=== PATIENT | female | born 1970 | race African-American/Black ===

== ENCOUNTER 2017-03-10 17:53 | Emergency (ER) | payer OTHER ==
[~2017-03-10] VITALS: Ht 162.6 cm; Wt 74.4 kg
--- NOTE | 2017-03-10 18:18 | ED.ADGEN ---
Past History Past Medical History: Other Adult General Chief Complaint Chief Complaint ".. I ve been coughing the past week..." HPI HPI Patient is a 46 year old female who presents with Upper Respiratory Infections and now Bronchitis . Pt has some productive sputum . No travel. No specific ill contacts. Patient is normally healthy. No history immunosuppression Review of Systems Review of Systems Constitutional: History of fever and chills Eyes: Denies change in visual acuity, redness, or eye pain [] HENT: History of nasal congestion and sore throat [] Respiratory: History of cough and wheezing Cardiovascular: No additional information not addressed in HPI [] GI: Denies abdominal pain, nausea, vomiting, bloody stools or diarrhea [] : Denies dysuria or hematuria [] Musculoskeletal: Denies back pain or joint pain [] Integument: Denies rash or skin lesions [] Neurologic: Denies headache, focal weakness or sensory changes [] Endocrine: Denies polyuria or polydipsia [] Family History Family History Noncontributory Current Medications Current Medications Current Medications Medications (Trade) Dose Ordered Sig/Allen Start Time Stop Time Status Last Admin Dose Admin Albuterol Sulfate (Ventolin Hfa) 2 puff 1X ONCE 03/10/17 18:30 03/10/17 18:37 DC 03/10/17 18:32 2 PUFF Azithromycin (Zithromax) 500 mg 1X ONCE 03/10/17 18:45 03/10/17 18:46 DC 03/10/17 19:08 500 MG Prednisone (Prednisone) 50 mg 1X ONCE 03/10/17 18:45 03/10/17 18:46 DC 03/10/17 19:08 50 MG See nursing for home meds Allergies Allergies Allergies Coded Allergies Type Severity Reaction Last Updated Verified No Known Drug Allergies 03/10/17 No Physical Exam Physical Exam Constitutional: Well developed, well nourished, no acute distress, non-toxic appearance. [] HENT: Normocephalic, atraumatic, bilateral external ears normal, oropharynx moist, injected posterior pharynx, no oral exudates, nose swollen turbinates and rhinorrhea Eyes: PERRLA, EOMI, conjunctiva normal, no discharge. [] Neck: Normal range of motion, no tenderness, supple, no stridor. [] Cardiovascular:Heart rate regular rhythm, no murmur [] Lungs & Thorax: Bilateral breath sounds equal with scattered wheezes on auscultation [] Abdomen: Bowel sounds normal, soft, no tenderness, no masses, no pulsatile masses. [] Skin: Warm, dry, no erythema, no rash. [] Back: No tenderness, no CVA tenderness. [] Extremities: No tenderness, no cyanosis, no clubbing, ROM intact, no edema. [] Neurologic: Alert and oriented X 3, normal motor function, normal sensory function, no focal deficits noted. [] Psychologic: Affect normal, judgement normal, mood normal. [] Current Patient Data Vital Signs Vital Signs Date Time Temp Pulse Resp B/P (MAP) Pulse Ox O2 Delivery O2 Flow Rate FiO2 03/10/17 20:00 98.1 90 18 121/56 (77) 98 Room Air EKG EKG [] Radiology/Procedures Radiology/Procedures [] Course & Med Decision Making Course & Med Decision Making Pertinent Labs and Imaging studies reviewed. (See chart for details). Gargle with Listerine 4 times a day. Take 250 Zithromax daily x 5 days. . Prednisone 50 daily x 5 days. . Use MDI 4 times a day. Take Vicoprofen only at night. Follow-up primary care. [] Final Impression Final Impression 1. Upper respiratory infection 2. Bronchitis[] Problems: Dragon Disclaimer Dragon Disclaimer This electronic medical record was generated, in whole or in part, using a voice recognition dictation system. BROOKE ERNST MD Mar 10, 2017 18:18
[2017-03-10] MEDS ORDERED: ALBUTEROL SULFATE 8GM INHALER. INH ONE (18:30)
[2017-03-10] MEDS ORDERED: PRED50TA PO (18:38)
[2017-03-10] MEDS ORDERED: HYDR-79 PO (18:38)
[2017-03-10] MEDS ORDERED: AZIT250T PO (18:38)
[2017-03-10] MEDS ORDERED: DIPH25CA58 PO (18:38)
[2017-03-10] MEDS ORDERED: AZITHROMYCIN 250 MG TABLET. PO ONE (18:45)
[2017-03-10] MEDS ORDERED: predniSONE 10 MG TABLET PO ONE (18:45)
[2017-03-10 20:00] VITALS: BP 121/56
== END 2017-03-10 20:40 | disposition home or self-care (01) ==
LOC: ER 17:53
DX: J06.9 Acute upper respiratory infection, unspecified (principal); J40 Bronchitis, not specified as acute or chronic
CPT/HCPCS: 94640; 99283; J0456; J7512; J7613; 94664